=== PATIENT | female | born 1945 | race Caucasian/White ===

== ENCOUNTER 2016-12-17 16:53 | Inpatient (IN) | payer OTHER ==
--- NOTE | ~2016-12-17 | CO ---
Unit #: [id number] #: [id number] Patient: QUETA GIL [id number] [address] [address] [id number] I MR#: [id number] NAME: QUETA GIL ROOM: 555 Age: 71 Sex: F Admission Date: 12/17/2016 : 1945 Attending Physician: Tk High M.D. Primary Care Physician: Tone Shelton M.D. Consultation Date: 12/18/2016 CONSULTATION REPORT CHIEF COMPLAINT 1. Right ankle pain. 2. Left foot pain. HISTORY OF PRESENT ILLNESS The patient is a 71-year-old female, who presented to the emergency department after a ground level fall at home while ambulating to the restroom at approximately 4 o'clock yesterday morning. She was actually using a bedside commode. She has very limited mobility. She felt weak and lightheaded and fell. She used her medical alert button and was brought her to the emergency department. In the emergency department, she was noted to be hypotensive and slightly tachycardic. She was noted to have pyuria and was diagnosed with pyelonephritis with early sepsis. In regard to her musculoskeletal condition, x-rays were obtained and demonstrated a nondisplaced fracture of the medial malleolus and nondisplaced fractures of the base of the second, third, and fourth proximal phalanges. Orthopedic consultation has been requested regarding further treatment of her fractures. She lives with family member and gently primarily mobile in a wheelchair. She has limited use of a walker for what sounds to be essentially transfers only. She complains of weakness in both legs and has difficulty transferring. She is really unable to ambulate more than several feet. PAST MEDICAL HISTORY 1. Recent admission for sepsis and bacteremia secondary to infected port. 2. Myelodysplastic syndrome with chronic anemia. 3. Coronary artery disease, status post CABG. 4. Seizure disorder. 5. Gastroesophageal reflux. 6. Depression. 7. Hypothyroidism. 8. Lupus. 9. Obstructive sleep apnea. PAST SURGICAL HISTORY 1. Status post CABG. 2. Cholecystectomy. 3. Hysterectomy. 4. . 5. Abdominoplasty. 6. Port removal. 7. Unspecified left knee surgery. Unit #: [id number] #: [id number] Patient: QUETA GIL HOME MEDICATIONS Home medications are reviewed include Fosamax, Lotrisone cream, vitamin B12, Aggrenox, Depakote, vitamin D, iron sulfate, Lasix, Neurontin, hydrocortisone cream, Plaquenil, Nizoral Shampoo, Keppra, Synthroid, Lidoderm patch, nitroglycerin, Zofran p.r.n., Protonix, potassium, Zoloft. ALLERGIES IV dye, latex, iodine, sulfa, codeine. FAMILY HISTORY Coronary artery disease. SOCIAL HISTORY The patient lives with her sister. She has no alcohol or tobacco use. She is nearly a non-ambulator as noted above. REVIEW OF SYSTEMS 10 systems are reviewed and positive for urinary frequency, dysuria, chills, dizziness, and musculoskeletal complaints as noted in the HPI. PHYSICAL EXAMINATION GENERAL APPEARANCE: Age-appropriate appearing 71-year-old female, in no acute distress. PSYCHIATRIC: Awake, alert, and oriented to person, place, time, and situation with normal range of mood and affect. CARDIAC: Regular rate and rhythm. PULMONARY: No increased work of breathing, symmetric chest rise. ABDOMEN: Nontender and nondistended. No masses. NEUROLOGIC: Grossly intact. Motor and sensory function throughout. No focal deficits. MUSCULOSKELETAL: She is in a splint to the right lower extremity. This is a somewhat impeding the position of the forefoot and in slight plantar flexion. Further range of motion is deferred. The splint is to be later removed and replaced. EXTREMITIES: Examination of her left foot reveals tenderness over the second, third, and fourth digits. VASCULAR: Her feet are warm and well perfused. LYMPHATICS: No lymphedema or lymphadenopathy. SKIN: There is no overlying erythema or induration. No evidence of any cellulitis. DIAGNOSTIC STUDIES IMAGING STUDIES: 1. Plain film radiographs of the left foot demonstrate what appears to be a nondisplaced fracture base of the proximal phalanx of digits 2, 3, and 4 on the oblique film. On the AP film, there is no visualized fracture. 2. Plain film radiographs of the right ankle demonstrated a nondisplaced medial malleolus fracture. There is diffuse disuse osteopenia and calcification of the distal vasculature. 3. Plain film radiographs of the right shoulder demonstrate a chronic deformity from prior right proximal humerus fracture with collapse of the humeral head. IMPRESSION This is a 71-year-old female, who is a minimal ambulator, admitted with essentially early urosepsis and a nondisplaced fracture of the right medial malleolus and nondisplaced fractures of the base of the proximal Unit #: [id number] #: [id number] Patient: QUETA GIL phalanx of the digit 2, 3, and 4 in the left foot. PLAN Her fractures require no surgical intervention. She is to be given a postoperative shoe on the left foot and may be weightbearing as tolerated for transfers. In regard to her right ankle fracture, her splint is removed and she was placed into a well-padded posterior splint for closed treatment of a right medial malleolus fracture. She will be nonweightbearing on the right lower extremity. I would recommend subacute rehab or nursing placement at discharge. She will follow up in our office in 2 weeks' time for repeat x-rays. Dictated by... Melissa Trujillo/aaron TD: 12/19/2016 00:24 JOB #: [id number] CONSULTATION REPORT X Jd Suarez MD CONSULTATION REPORT
--- NOTE | ~2016-12-17 | CO ---
Unit #: [id number] #: [id number] Patient: QUETA GIL [id number] [id number] [facility]. [place], [place] [address] [id number] I MR#: [id number] NAME: QUETA GIL ROOM: 555 Age: 71 Sex: F Admission Date: 12/17/2016 : 1945 Attending Physician: Tk High M.D. Primary Care Physician: Tone Shelton M.D. CONSULTATION REPORT REASON FOR CONSULTATION Elevated troponin. HISTORY OF PRESENT ILLNESS This is a 71-year-old white female who presented to the emergency room after a fall at home. She states she was getting up in the middle of the night where she felt lightheaded and shaky. She was hanging onto the hospital rail but eventually fell injuring her right ankle and foot. She was found to have a nondisplaced fracture of the right medial malleolus and nondisplaced fractures of the base of the proximal phalanx of the second, third and fourth digits on the left foot. Today, the patient had an episode of left anterior chest pressure with sharp pain that was nonradiating to the neck, arm or jaw. She had associated nausea and diaphoresis. She was treated with three sublingual nitroglycerin that resolved her pain. Upon further questioning, the patient states she has been having episodes of which she thought was indigestion where she has been taking antacids. Her chest indigestion has been awakening her from sleep. She has known coronary artery disease where she had single vessel coronary artery bypass graft with a failed PCI in 1989. She was following Dr. Costa at one time. However, she has failed to follow up. Denies a history of hypertension, hyperlipidemia, diabetes or nicotine abuse. She has a very strong family history of premature coronary artery disease. No cardiac testing after her bypass surgery in 1989. Her troponin on admission was negative. Troponin today was elevated at 0.83. Electrocardiogram on admission had no acute ischemic changes but, however, repeat electrocardiogram today shows inferior wall ST elevation with reciprocal ST depression to the anterolateral leads. She is currently chest pain free. PAST MEDICAL HISTORY 1. Single vessel coronary artery bypass graft as an emergent procedure after failed PCI in 1989. 2. 2D echocardiogram 03/05/2013 shows an ejection fraction equal to greater than 55% with mild aortic regurgitation and mild aortic stenosis. 3. GERD. 4. History of gastric ulcers. 5. Seizure disorder. 6. Hypothyroidism. 7. Depression. 8. Recurrent falls. 9. Obstructive sleep apnea. 10. SLE. 11. Chronic anemia secondary to myelodysplastic syndrome. Unit #: [id number] #: [id number] Patient: QUETA GIL 12. History of diabetes (1) . 13. Lifelong nonsmoker. PAST SURGICAL HISTORY 1. Hysterectomy. 2. Cholecystectomy. 3. Coronary artery bypass graft. 4. section. 5. Abdominoplasty. 6. Left knee surgery. SOCIAL HISTORY The patient lives with her sister. She has never smoked. Denies illicit drug and alcohol use. Lifestyle is sedentary. FAMILY HISTORY Father from myocardial infarction at age 70. Mother from myocardial infarction at age 60. Has a sister who has tachycardia. Another sibling with heart disease. Her son had coronary artery bypass graft at age 34. ALLERGIES IV contrast, sulfa, latex and codeine. HOME MEDICATIONS 1. Fosamax 70 mg weekly. 2. Lotrisone cream 45 g topically b.i.d. 3. Aggrenox, one cap b.i.d. 4. Depakote 500 mg b.i.d. 5. Vitamin D 50,000 units q.7 days. 6. Ferrous sulfate 325 mg daily. 7. Furosemide 80 mg daily p.r.n. 8. Gabapentin 600 mg t.i.d. 9. Hydrocortisone cream topically b.i.d. 10. Plaquenil 200 mg daily. 11. Ketoconazole 120 mL topically b.i.d. 12. Keppra 1000 mg b.i.d. 13. Levothyroxine 50 mcg daily. 14. Nitrostat 0.4 mg sublingual p.r.n. 15. Vitamine B12, one tablet daily. 16. Lidoderm topically daily p.r.n. 17. Zofran 4 mg q.8 hour p.r.n. 18. Protonix 40 mg daily. 19. Potassium chloride 10 mEq daily. 20. Zoloft 50 mg daily. REVIEW OF SYSTEMS CONSTITUTIONAL: Negative for current fever or chills. Has no recent weight gain or weight loss. HEENT: No headache, hearing or visual changes. Reported dizziness. CARDIOVASCULAR: Has chest discomfort described in HPI. Positive for palpitations. No paroxysmal nocturnal dyspnea or orthopnea. No syncope or near syncope. RESPIRATORY: Negative for dyspnea, cough or hemoptysis. GASTROINTESTINAL: Reported nausea with chest pain. No constipation or melena. EXTREMITIES: Positive for lower extremity pain bilaterally. No edema. Unit #: [id number] #: [id number] Patient: QUETA GIL PHYSICAL EXAMINATION VITAL SIGNS: Blood pressure 109/51, heart rate 84, temperature 98.3. BMI 32. GENERAL: This is an obese 71-year-old, elderly white female who is in no acute distress. NEUROLOGICAL: She is awake, alert, oriented without focal weaknesses. NECK: Trachea midline. No thyromegaly or lymphadenopathy. No jugular venous distention. HEART: S1, S2 heart sounds are normal. No murmurs, rubs or clicks. Regular rate and rhythm. LUNGS: Clear to auscultation. ABDOMEN: Soft, nontender with bowel sounds present. EXTREMITIES: Right lower extremity in a cast. Left lower extremity without edema. Pedal pulses palpable. DIAGNOSTIC STUDIES LABORATORY: Glucose 77, BUN less than 5, creatinine 0.4, sodium 133, potassium 3.5. CK total 89, MB 4.5, MB index 5.1, troponin 0.83. Cholesterol 102, triglycerides 71, LDL 47, HDL 41, white count 3.9, hemoglobin 7.7, hematocrit is 22.9, platelet count 106. CARDIOVASCULAR: Presenting electrocardiogram - normal sinus rhythm with a rate of 90 beats per minute. There is poor R wave progression V1 to V6 with left axis deviation. Repeat electrocardiogram - sinus tachycardia with rate of 118 beats per minute with ST elevation in the inferior leads, III and AVF. There is ST depression in the anterolateral leads consistent with inferior lateral wall ST elevation myocardial infarction. IMPRESSION 1. Nondisplaced fracture of the right medial malleolus and proximal phalanx of the second, third and fourth digits on the left foot after fall. 2. Acute inferior lateral ST elevation myocardial infarction. 3. History of coronary artery bypass graft after failed PCI in 1989. 4. Severe anemia. 5. Hypothyroidism. 6. History of seizure disorder. 7. Obstructive sleep apnea. 8. Lifelong nonsmoker. PLAN 1. Because of ST elevation myocardial infarction and elevated troponin with history of coronary artery bypass graft, the patient needs urgent cardiac catheterization. This has been explained to the sister and patient at bedside. Also has been explained to Angelita, her daughter, over the phone. 2. Premedicate for IV contrast allergy. 3. Start the patient on anticoagulation with heparin and aspirin. 4. Stat portable chest x-ray will be done. 5. Monitor hemoglobin. May need blood transfusion. 6. Further recommendations pending results of the cardiac catheterization. Unit #: [id number] #: [id number] Patient: QUETA GIL Thank you for allowing us to assist with this patient's care. Dictated by... Jolene ParsonPDaquanRDaquanNDaquan for Melissa Hernández/jake TD: 12/24/2016 07:12 JOB #: [id number] CONSULTATION REPORT Page 1 of 1 X Jerry Puckett APRN X CONSULTATION REPORT
--- NOTE | ~2016-12-17 | EKG ---
PATIENT: QUETA GIL UNIT #: [id number] Ventricular Rate: 90 BPM Atrial Rate: 90 BPM P-R Interval: 188 ms QRS Duration: 94 ms Q-T Interval: 394 ms QTC Calculation(Bezet): 481 ms P [place]: 19 degrees Calculated R [place]: -19 degrees Calculated T [place]: 152 degrees Diagnosis Line: Normal sinus rhythm Diagnosis Line: Left ventricular hypertrophy with repolarization Diagnosis Line: abnormality Diagnosis Line: Possible Lateral infarct , age undetermined Diagnosis Line: Abnormal ECG Diagnosis Line: When compared with ECG of 11-JUN-2016 15:24, Diagnosis Line: T wave inversion now evident in Lateral leads Diagnosis Line: Confirmed by UNA FRANCE MD ([id number]) on Diagnosis Line: 12/18/2016 11:26:05 AM INTERPRETING MD: ROMÁN CRONIN
--- NOTE | ~2016-12-17 | CR21 ---
[facility] A Service of [facility] RADIOLOGY TEXT RESULTS PATIENT: QUETA GIL LOCATION: [facility] 555-01 : 45 UNIT #: [id number] AGE: [address]: Tk High MD SEX: F ORDER DR: [id number] [facility] [address] [facility]. [place], [place] [address] [id number] I MR#: [id number] Acc #: [id number] NAME: QUETA GIL : 1945 SEX: F STUDY DATE/TIME: 12/17/2016 17:09 UNIT: [facility] ROOM: [facility] STUDY DESCRIPTION: CR Ankle Min 3 Views Rt Attending Physician: Tk High M.D. Ordering Physician: Mat Dias M.D. Primary Care Physician: Tone Shelton M.D. MEDICAL IMAGING REPORT This report is preliminary unless electronic signature is present EXAM Right ankle, 12/17/2016. HISTORY 71-year-old female with right ankle pain status post fall today. COMPARISON Right foot, 11/06/2015. FINDINGS 3 views of the right ankle demonstrate severe bony demineralization. There is a suspected nondisplaced fracture of the medial malleolus. Small ankle effusion. Ankle mortise appears symmetric. Talar dome intact. No other grossly displaced fractures are identified. Soft tissue swelling noted around the ankle. Extensive vascular calcification. Old healed distal fibular fracture. IMPRESSION 1. Severe osteopenia. 2. Suspected nondisplaced fracture involving the medial malleolus. 3. Old healed fracture of the distal fibula. 4. Small ankle description small tibiotalar effusion. 5. Extensive vascular calcification. Dictated by... Jake Schrader M.D. THIS IS AN ELECTRONICALLY VERIFIED REPORT Jake Schrader M.D. at 12/19/2016 3:39 PM JEAN-PAUL/geoffrey [facility] A Service of [facility] RADIOLOGY TEXT RESULTS PATIENT: QUETA GIL LOCATION: [facility] 555-01 : [birth year] UNIT #: [id number] AGE: [address]: Tk High MD SEX: F ORDER DR: TD: 12/18/2016 09:24 JOB #: [id number] MEDICAL IMAGING REPORT COPY
--- NOTE | ~2016-12-17 | EKG ---
PATIENT: QUETA GIL UNIT #: [id number] Ventricular Rate: 69 BPM Atrial Rate: 69 BPM P-R Interval: 180 ms QRS Duration: 98 ms Q-T Interval: 426 ms QTC Calculation(Bezet): 456 ms P [place]: 31 degrees Calculated R [place]: -31 degrees Calculated T [place]: -150 degrees Diagnosis Line: Normal sinus rhythm Diagnosis Line: Left axis deviation Diagnosis Line: ST and T wave abnormality, consider anterolateral Diagnosis Line: ischemia Diagnosis Line: Abnormal ECG Diagnosis Line: When compared with ECG of 21-DEC-2016 07:01, Diagnosis Line: QT has shortened Diagnosis Line: Confirmed by SHALOM MARTINEZ MD ([id number]) on Diagnosis Line: 12/22/2016 8:03:29 PM INTERPRETING MD: ROYAL
--- NOTE | ~2016-12-17 | HP ---
Unit #: [id number] #: [id number] Patient: QUETA GIL [id number] [address] [place], [place] [address] [id number] I MR#: [id number] NAME: QUETA GIL ROOM: 36944 Age: 71 Sex: F Admission Date: 12/17/2016 : 1945 Attending Physician: Hallie Myers M.D. Primary Care Physician: Tone Shelton M.D. HISTORY AND PHYSICAL CHIEF COMPLAINT UTI with sepsis, possible right medial malleolus fracture. HISTORY This 71-year-old female with CAD and normal LV function, seizure disorder, SLE and MDS, is admitted for UTI and sepsis. The patient states that she was well until one week prior to admission when she developed dysuria, and worsening urinary frequency along with chills and poor p.o. intake. Yesterday felt lightheaded. At four o'clock this morning when attempting to use the bedside commode she felt very weak and lightheaded. She fell. She was later able to use her medical alert button, was brought to this emergency department this afternoon with a blood pressure of 78/53, heart rate 92. In the course of her evaluation she was found to have significant pyuria. She complained of right ankle/right foot pain along with left great toe pain. X-rays demonstrate a possible nondisplaced right medial malleolus fracture and possible fractures of the phalanges on the right. In the ER she was given 10 mg of Lortab, bolused with a liter of saline with improvement of her blood pressure. She was then given 2 g of Rocephin and 4 mg of morphine. The patient does make mention of an increasing bilateral flank pain as well. PAST MEDICAL HISTORY 1. Admission to 11/2015 for Staphylococcus coagulase negative sepsis/bacteremia due to infected port which was then removed. Also had a UTI at that time. 2. History of C. difficile colitis. 3. Myelodysplastic syndrome with chronic anemia. 4. CAD status post CABG in the early with normal ejection fraction. 5. Seizure disorder. 6. GERD with history of gastric ulcers. 7. Questionable previous CVA. 8. Depression. 9. Hypothyroidism. 10. SLE. 11. Previous history of obstructive sleep apnea. 12. Cervical spine disease. 13. Recurrent falls. 14. Status post CABG. 15. Cholecystectomy. 16. Hysterectomy. 17. . Unit #: [id number] #: [id number] Patient: QUETA GIL 18. Henri holt. 19. Previous port with removal. 20. Previous left knee surgery. ALLERGIES IV dye, latex, iodine sulfa, codeine. HOME MEDICATIONS 1. Fosamax 70 mg weekly. 2. Lotrisone cream b.i.d. 3. Vitamin B12 daily. 4. Aggrenox 25/200 b.i.d. 5. Depakote 500 mg b.i.d. 6. Vitamin D 50,000 units weekly. 7. Iron sulfate 325 mg daily. 8. Lasix 40 mg two tablets q.a.m. 9. Neurontin 600 mg t.i.d. 10. Hydrocortisone cream. 11. Plaquenil 200 mg daily. 12. Nizoral 2% shampoo twice a week. 13. Keppra 1000 mg b.i.d. 14. Synthroid 0.05 mg daily. 15. Lidoderm patch p.r.n. 16. Nitroglycerin p.r.n. 17. P.r.n. Zofran. 18. Protonix 40 mg daily. 19. Potassium 10 mEq daily. 20. Zoloft 50 mg daily. FAMILY HISTORY CAD. SOCIAL HISTORY The patient is living with her sister, is a lifelong nonsmoker, does not drink alcohol. REVIEW OF SYSTEMS Review of systems is notable for dysuria, frequency, chills, lightheadedness, fall, right foot and ankle pain, seizures, SLE, CAD, GERD, peptic ulcer disease, depression, hypothyroidism, MDS, C-spine disease, recurrent falls, abovementioned surgeries. All other systems were reviewed and are negative. PHYSICAL EXAMINATION GENERAL: Pleasant, pale 71-year-old female currently in no acute distress. VITAL SIGNS: Temperature 98.4. Pulse 92. Respirations are 14. Blood pressure is 78/53, now improved to 103/50. Oxygen saturation is 93% on room air. HEENT: Eyes PERRLA, extraocular muscles are intact. Pharynx is benign. NECK: Supple, without adenopathy or thyromegaly. CHEST: Clear. BACK: No CVA tenderness at this time but the patient did receive morphine earlier. CARDIAC: Normal S1 and S2, very soft systolic murmur. ABDOMEN: Bowel sounds are present. No hepatosplenomegaly, tenderness or masses. EXTREMITIES: The patient has a right lower extremity cast in place by the ER. She has a tenderness with palpation of the left great toe. No pedal Unit #: [id number] #: [id number] Patient: QUETA GIL. NEUROLOGIC EXAM: Patient is awake, alert, oriented. Cranial nerves are intact. Equal strength throughout. DIAGNOSTIC STUDIES LABORATORY: On admission labs hematocrit is 30.7, has been low in the past as well, normal white count, platelet count is 128. SMA-12: GFR is 58.1, calcium 8.2, protein 5.9, albumin is 3.2. Lactic acid is normal. Cardiac markers are negative. Urinalysis positive for leukocyte esterase, nitrites, protein, with 50 to 100 red cells, innumerable white cells, 4+ bacteria. IMAGING: X-rays of the LS spine chronic changes, no fracture. Spondylolisthesis noted. X-rays of the right shoulder show no new fracture. There is a chronic right humeral head fracture deformity with advanced degenerative disease. X-ray of the right foot and ankle suspected nondisplaced fracture of the medial malleolus. Questionable nondisplaced fractures of the phalanx second, third and fourth although this could be artifactual. CARDIOVASCULAR: EKG: Normal sinus rhythm, rate 90, poor R-wave progression, left axis deviation. ASSESSMENT 1. Urinary tract infection with sepsis and hypotension, responding to intravenous fluids. 2. History of Staphylococcus coagulase negative bacteremia last year. Port was removed. 3. Possible right medial nondisplaced ankle fracture, rule out toe fractures. 4. Myelodysplastic syndrome with chronic anemia. 5. Rheumatoid arthritis. 6. Seizures, on Keppra and Depakote. 7. Coronary artery disease, status post coronary artery bypass graft with normal left ventricular function. 8. History of peptic ulcer disease. 9. Hypothyroidism. PLANS 1. IV fluids and hold Lasix. 2. Rocephin and vancomycin pending cultures. Will ask for a renal ultrasound. Given the patient's blood pressure was low will give one dose of tobramycin pending cultures. 3. DVT prophylaxis. 4. Gentle pain control. 5. Florastor given history of C. difficile colitis. 6. Orthopedic surgeon to see. Dictated by Hallie Myers M.D. AML/cf Unit #: [id number] #: [id number] Patient: QUETA GIL TD: 12/17/2016 22:24 JOB #: [id number] HISTORY AND PHYSICAL X Hallie Myers MD X HISTORY AND PHYSICAL
--- NOTE | ~2016-12-17 | A ---
[facility] Nutrition Therapy DATE: 12/18/16 Patient: QUETA GIL Physician: FANY Address: [address] [facility] Room/Bed: 555-01 [facility], Zip: [place] [address] Admit Date: 12/17/16 Date of : [birth year] Height: 5 4 Weight: 187 84.82 NUTRITIONAL ASSESSMENT: REASON: 6 nutritional risk pts RE: 35# wt loss, eating poorly 71 yo female admitted for sepsis PMH: UTI, CAD, seizure d/o, depression, hypothroidism, anemia, colitis, FERNANDO, cholecystectomy, DM, cervical spine disease, SLE Anthropometrics: HT: 5'4", WT: 85 kg (186#), BMI: 32.2 Labs: Ca++: 7.7, Alb: 3.2, Lip: 16 Meds: Vitamin D, NaCl, Protonix, Ferrous Gluconate, Zofran I/O & Bowel function: 2940/4, LBM 3/13 Skin Integrity: Scar (BLE, L hip, chest), surgical site (R chest) Edema: Generalized Estimated Nutrition Needs: Increased d/t wt loss Assessment: Chart reviewed, events noted. Pt reported loss of appetite after fall yesterday morning. Pt reported ~50# wt loss over past year, stating UBW ~230#. Pt reports not following any specific diet at home. Of note, pt experiences indigestion after consuming milk, but no intolerance with yogurt. RD encouraged Ensure Clear once a day, pt agreed. Pt reported no diet questions at this time. RD to follow. Dx: Unintended weight loss RT eating poorly, appetite loss, current clinical condition AEB ~50# wt loss, pt report above. Intervention: 1. Apple Ensure Clear once a day Monitoring, Evaluation and Goals: 1. PO intake; provide and consume ~80-100% of estimated energy needs 2. Labs; WNL 3. Skin; promote healing 4. Weight; prevent further unintentional wt loss Recommendations: 1. Order Apple Ensure Clear once daily with lunch. [facility] Nutrition Therapy DATE: 12/18/16 Patient: QUETA GIL Physician: FANY Address: [address] [facility] Room/Bed: 555-01 [facility], Zip: [place] [address] Admit Date: 12/17/16 Date of : [birth year] Height: 5 4 Weight: 187 84.82 2. Recommend to add lactose-free to current diet order 2' pt report above. 3. Encourage adequate calorie, protein, and fluid intake. Pt is at a mild-moderate nutrtional risk. RD to f/u per protocol. Respectfully, MARIANELA HOLT, Supervisor [employer] Robert Murillo MS, RD, LD Food and Nutritional Services [facility] cc: client file
--- NOTE | ~2016-12-17 | EKG ---
PATIENT: QUETA GIL UNIT #: [id number] Ventricular Rate: 93 BPM Atrial Rate: 93 BPM P-R Interval: 184 ms QRS Duration: 102 ms Q-T Interval: 390 ms QTC Calculation(Bezet): 484 ms P [place]: 41 degrees Calculated R [place]: -25 degrees Calculated T [place]: -146 degrees Diagnosis Line: Normal sinus rhythm Diagnosis Line: Anterolateral infarct (cited on or before Diagnosis Line: 17-DEC-2016) Diagnosis Line: ST and T wave abnormality, consider inferior Diagnosis Line: ischemia Diagnosis Line: Abnormal ECG Diagnosis Line: When compared with ECG of 20-DEC-2016 10:54, Diagnosis Line: (unconfirmed) Diagnosis Line: Sinus rhythm has replaced Junctional rhythm Diagnosis Line: Questionable change in QRS duration Diagnosis Line: Questionable change in initial forces of Diagnosis Line: Anteroseptal leads Diagnosis Line: Confirmed by EFREN SRIVASTAVA MD ([id number]) on 12/21/2016 Diagnosis Line: 7:55:53 AM INTERPRETING MD: ATIF CRONIN
--- NOTE | ~2016-12-17 | CR181 ---
[facility] A Service of [facility] RADIOLOGY TEXT RESULTS PATIENT: QUETA GIL LOCATION: B 555-01 : 45 UNIT #: [id number] AGE: [address]: Tk High MD SEX: F ORDER DR: [id number] [facility] [address] [place], [place] [address] [id number] I MR#: [id number] Acc #: [id number] NAME: QUETA GIL : 1945 SEX: F STUDY DATE/TIME: 12/17/2016 17:14 UNIT: [facility] ROOM: [facility] STUDY DESCRIPTION: CR Lumbar Spine 2 or 3 Views Attending Physician: Tk High M.D. Ordering Physician: Mat Dias M.D. Primary Care Physician: Tone Shelton M.D. MEDICAL IMAGING REPORT This report is preliminary unless electronic signature is present EXAM Lumbar spine 3 views HISTORY 71-year-old female fell, complains of pain, weakness, cannot move FINDINGS AP lateral and cone lateral views of the lumbar spine demonstrates a grade 1 to grade 2 spondylolisthesis L4 on L5 which was present on the patient's study from October 2015 but may have progressed. There is extensive multilevel facet arthropathy. No definite fracture is identified. Diffuse aortic atherosclerotic changes. 2 radiodensities are seen at the thoracolumbar junction most likely represent intrathecal Pantopaque. Dystrophic calcifications are seen over the right abdomen probably related to areas of fat necrosis. Mild levo curvature lumbar spine. 2 radiodensities demonstrate in the right upper quadrant could represent gallstones or possibly represent calcifications within diverticula. IMPRESSION 1. Grade 1 to grade 2 spondylolisthesis L4 on L5 which was present on the patient's CT scan October 2015 but may be minimally progressed. This is most likely on the basis of advanced degenerative facet arthropathy. 2. No acute fracture identified. Extensive facet arthropathy noted lower lumbar spine. Dictated by... Citlalli Snow M.D. THIS IS AN ELECTRONICALLY VERIFIED REPORT Citlalli Snow M.D. at 12/18/2016 2:05 PM SANDOVAL/bret [facility]. [facility] A Service of [facility] RADIOLOGY TEXT RESULTS PATIENT: QUETA GIL LOCATION: C5B 555-01 : 45 UNIT #: [id number] AGE: [address]: Tk High MD SEX: F ORDER DR: TD: 12/18/2016 09:24 JOB #: [id number] MEDICAL IMAGING REPORT COPY
--- NOTE | ~2016-12-17 | CR63 ---
[facility] A Service of [facility] RADIOLOGY TEXT RESULTS PATIENT: QUETA GIL LOCATION: [facility] 555 : 45 UNIT #: [id number] AGE: [address]: Tk High MD SEX: F ORDER DR: [id number] [facility] [address] [facility]. [place], [place] [address] [id number] I MR#: [id number] Acc #: [id number] NAME: QUETA GIL : 1945 SEX: F STUDY DATE/TIME: 12/26/2016 14:41 UNIT: [facility] ROOM: [facility] STUDY DESCRIPTION: CR Chest 2 View Attending Physician: Tk High M.D. Ordering Physician: Tk High M.D. Primary Care Physician: Tone Shelton M.D. MEDICAL IMAGING REPORT This report is preliminary unless electronic signature is present EXAM Chest PA and lateral 12/26/2016. COMPARISON STUDIES Comparison study is dated 12/20/2016 HISTORY Chest pain, sepsis beginning today. FINDINGS PA and lateral views obtained. The heart size is stable. Vascular pattern normal. Lungs are clear. There is a densely calcified breast prosthesis in place. The patient has had prior bypass surgery. No acute infiltrates are identified. Note is made of a large hiatal hernia. CONCLUSION 1. Status post median sternotomy and bypass. 2. Large hiatal hernia. 3. Calcified right breast prosthesis. 4. No acute process in the chest. Dictated by... Mike Campbell M.D. THIS IS AN ELECTRONICALLY VERIFIED REPORT Mike Campbell M.D. at 12/30/2016 2:45 PM SAMMIE/bill TD: 12/26/2016 15:45 JOB #: [id number] [facility] A Service of [facility] RADIOLOGY TEXT RESULTS PATIENT: QUETA GIL LOCATION: [facility] 555 : 45 UNIT #: [id number] AGE: [address]: Tk High MD SEX: F ORDER DR: MEDICAL IMAGING REPORT Page 1 of 1 COPY
--- NOTE | ~2016-12-17 | CR72 ---
[facility] A Service of [facility] RADIOLOGY TEXT RESULTS PATIENT: QUETA GIL LOCATION: [facility] 555 : 45 UNIT #: [id number] AGE: [address]: Tk High MD SEX: F ORDER DR: [id number] [facility] [address]. [place], [place] [address] [id number] I MR#: [id number] Acc #: [id number] NAME: QUETA GIL : 1945 SEX: F STUDY DATE/TIME: 12/20/2016 13:08 UNIT: [facility] ROOM: [facility] STUDY DESCRIPTION: CR Chest Single View Portable Attending Physician: Tk High M.D. Ordering Physician: Tyson Tellez M.D. Primary Care Physician: Tone Shelton M.D. MEDICAL IMAGING REPORT This report is preliminary unless electronic signature is present EXAM Frontal chest. DATE OF EXAM 12/20/2016 INDICATIONS 71-year-old female with shortness of air, heart attack, symptoms began 12/17/2016. History of open-heart surgery. Cardiac catheterization today. REPORT Frontal chest, compared with 06/11/2016. FINDINGS Right-sided PICC line tip at the level of the ios-oy-zhardf SVC in this patient status post median sternotomy and potential heart valve replacement versus mitral valve calcifications simulating an artificial valve. Vascularity within normal limits. Lung volumes are low. There is no dense consolidation pneumothorax or new significant effusion. Post-traumatic changes of the right humerus. Status post augmentation mammoplasty bilaterally with calcified implant on the right. IMPRESSION 1. New right-sided PICC line in satisfactory position. No pneumothorax. 2. Postop changes as described with low lung volumes, but no effusion or dense consolidation. 3. Chronic post-traumatic deformity of the humeral head and proximal shaft right humerus. Dictated by... Rohith Cohen M.D. [facility] A Service of [facility] RADIOLOGY TEXT RESULTS PATIENT: QUETA GIL LOCATION: [facility] [address] : 45 UNIT #: [id number] AGE: [address]: Tk High MD SEX: F ORDER DR: THIS IS AN ELECTRONICALLY VERIFIED REPORT Rohith Cohen M.D. at 12/20/2016 5:25 PM Andre TD: 12/20/2016 17:22 JOB #: [id number] MEDICAL IMAGING REPORT COPY
--- NOTE | ~2016-12-17 | US140 ---
[facility] A Service of [facility] RADIOLOGY TEXT RESULTS PATIENT: QUETA GIL LOCATION: C5B 555-01 : 45 UNIT #: [id number] AGE: [address]: Tk High MD SEX: F ORDER DR: [id number] [facility] [address] [place], [place] [address] [id number] I MR#: [id number] Acc #: [id number] NAME: QUETA GIL : 1945 SEX: F STUDY DATE/TIME: 12/23/2016 14:18 UNIT: [facility] ROOM: [facility] STUDY DESCRIPTION: US UE Veins Unilat or Ltd Stdy Attending Physician: Tk High M.D. Ordering Physician: Tk High M.D. Primary Care Physician: Tone Shelton M.D. MEDICAL IMAGING REPORT This report is preliminary unless electronic signature is present EXAM Right upper extremity venous Doppler, 12/23 INDICATIONS History of PICC line in the right upper extremity. Right upper extremity swelling for the last 4 days. FINDINGS Black-scale, color flow, and spectral Doppler waveform analysis is performed of the right upper extremity venous system. All of the deep venous structures demonstrate normal color flow and compressibility, where applicable. There is no DVT. There is some nonocclusive superficial thrombus in the mid basilic vein. The cephalic vein is patent. A PICC is present in the basilic vein. IMPRESSION 1. No DVT in the right upper extremity. 2. Short-segment nonocclusive superficial thrombus in the mid basilic vein. Dictated by... Lv Ron Jr., M.D. THIS IS AN ELECTRONICALLY VERIFIED REPORT Lv Ron Jr., M.D. at 12/23/2016 10:31 PM TARA/isamar TD: 12/23/2016 19:42 JOB #: [id number] MEDICAL IMAGING REPORT COPY
--- NOTE | ~2016-12-17 | CR230 ---
[facility] A Service of [facility] RADIOLOGY TEXT RESULTS PATIENT: QUETA GIL LOCATION: [facility] 555-01 : 45 UNIT #: [id number] AGE: [address]: Tk High MD SEX: F ORDER DR: [id number] [place] [id number] [facility] [facility] [place], [place] [address] [id number] I MR#: [id number] Acc #: [id number] NAME: QUETA GIL : 1945 SEX: F STUDY DATE/TIME: 12/17/2016 17:11 UNIT: [facility] ROOM: [facility] STUDY DESCRIPTION: CR Shoulder Min 2 View Rt Attending Physician: Tk High M.D. Ordering Physician: Mat Dias M.D. Primary Care Physician: Tone Shelton M.D. MEDICAL IMAGING REPORT This report is preliminary unless electronic signature is present EXAM Right shoulder 12/17/2016 HISTORY 71-year-old female with right shoulder pain status post fall today. COMPARISON Right shoulder 03/09/2013. FINDINGS 4 views of the right shoulder demonstrate a chronic-appearing fracture deformity of the humeral head which is not significantly changed from 03/09/2013. No evidence of an acute fracture. No dislocation. Advanced glenohumeral arthrosis is again noted. Mild arthrosis of the acromioclavicular joint. IMPRESSION 1. No evidence of acute fracture or dislocation. 2. Chronic-appearing fracture deformity of the right humeral head with a secondary advanced glenohumeral arthrosis. 3. Mild arthrosis of the acromioclavicular joint. Dictated by... Jake Schrader M.D. THIS IS AN ELECTRONICALLY VERIFIED REPORT Jake Schrader M.D. at 12/19/2016 3:39 PM Ysabel TD: 12/18/2016 09:54 JOB #: [id number] [facility] A Service of [facility] RADIOLOGY TEXT RESULTS PATIENT: QUETA GIL LOCATION: C5 555-01 : 45 UNIT #: [id number] AGE: [address]: Tk High MD SEX: F ORDER DR: MEDICAL IMAGING REPORT COPY
--- NOTE | ~2016-12-17 | DS ---
Unit #: [id number] #: [id number] Patient: QUETA GIL [id number] [address] [place], [place] [address] [id number] I MR#: [id number] NAME: QUETA GIL ROOM: 555 Age: 71 Sex: F Admission Date: 12/17/2016 : 1945 Discharge Date: Attending Physician: Tk High M.D. Primary Care Physician: Tone Shelton M.D. DISCHARGE SUMMARY ADMITTING DIAGNOSES 1. Sepsis with urinary tract infection. 2. Non-ST elevation myocardial infarction, status post cardiac catheterization and recommended for medical management. 3. Right malleolar fracture, conservative management. 4. History of c-diff colitis. 5. History of myelodysplasia with chronic anemia. 6. History of coronary artery disease, status post coronary artery bypass grafting. 7. History of seizure disorder. 8. History of gastroesophageal reflux disease. 9. History of depression. 10. Hypothyroidism. 11. SLE. 12. Obstructive sleep apnea. 13. Cervical spine disease. 14. Recurrent falls. 15. Cholecystectomy. 16. Hysterectomy. 17. . HISTORY OF PRESENT ILLNESS The patient is a 71-year-old lady with multiple medical problems including coronary artery disease with normal left ventricular function, seizure disorder, lupus and MDS. The patient was admitted because of a urinary tract infection and sepsis. She was having increased frequency of urination prior to hospitalization. She was trying to get into the bathroom. She felt lightheaded and dizzy and fell. In the initial hospitalization she was hypotensive. HOSPITAL COURSE The patient was started on sepsis protocol. She was started on broad spectrum antimicrobials. Her urine cultures came back positive for e-coli. Antimicrobials were deescalated. In the hospital course she also had right foot pain. She was seen by Dr. Jd Suarez and Dr. Suarez recommended for nonoperative management and conservative management with nonweightbearing and a splint. In the hospital course she complained of chest pain. Dr. Tellez was consulted. He did a cardiac catheterization. She was noted to have 100% occlusion of the right coronary artery and heavily calcified vessels. Dr. Tellez recommended for medical management. She is doing clinically better. We are working on trying to arrange for rehab, but most likely by tomorrow we may have a rehab bed. She also was noted to have swelling of the lower Unit #: [id number] #: [id number] Patient: QUETA GIL extremities. I am trying to get a STAT ultrasound of the legs. If the ultrasound is positive for DVT will start her on anticoagulation. If they are negative, we will leave her on prophylactic dose of Lovenox. PHYSICAL EXAMINATION VITALS: Temperature 97.5, pulse rate 60, respiratory rate 21, blood pressure 92/63. GENERAL: The patient is alert and oriented times three, lying in the bed in no acute distress. HEENT: Normocephalic, atraumatic. No icterus. Pupils equally round and reactive to light and accommodation. Extraocular muscles intact. NECK: Supple. No jugular venous distension. HEART: S1 and S2. Regular rate and rhythm. CHEST: Bilateral equal entry. Clear to auscultation. ABDOMEN: Soft and nontender. EXTREMITIES: Right foot in splint and mild edema. DISCHARGE MEDICATIONS 1. Lotrisone topical ointment. 2. Tylenol p.r.n. 3. Depakote 500 mg b.i.d. 4. Gabapentin 600 mg p.o. daily. 5. Keppra 1000 mg p.o. b.i.d. 6. Zoloft 25 mg at bedtime. 7. Zofran 4 mg p.o. q.8 h. p.r.n. nausea and vomiting. 8. Ketoconazole 120 ml topically b.i.d. 9. Plaquenil 200 mg p.o. daily. 10. Lidoderm topical for pain p.r.n. 11. Coreg 6.25 mg p.o. b.i.d. 12. Omnicef 300 mg p.o. b.i.d. for 3 more days. 13. Lipitor 40 mg daily. 14. Ferrous gluconate 324 mg daily. 15. Fosamax 70 mg p.o. weekly. 16. Florastor 50 mg p.o. b.i.d. 17. Aspirin 81 mg daily. 18. Ranexa 500 mg p.o. b.i.d. 19. Plavix 75 mg daily. 20. Protonix 40 mg daily. 21. Synthroid 50 mcg p.o. daily. 22. Aggrenox 1 capsule p.o. b.i.d. 23. Imdur 30 mg p.o. daily. 24. Nitroglycerin 0.4 mg sublingual p.r.n. chest pain. 25. Vitamin D 50,000 units p.o. Friday. 26. Cyanocobalamin 1000 mcg p.o. daily. FOLLOWUP 1. The patient is instructed to follow up with her primary care physician. 2. Follow up with cardiology as an outpatient. PROCEDURES PERFORMED Kindly note we did get a two-dimensional echo done during this hospitalization. It showed an ejection fraction of 35%-45%. Mildly dilated RV. Mild to moderate aortic stenosis. Mild to moderate aortic regurgitation. Mitral anular calcification. Mild to moderate mitral regurgitation. Mild tricuspid regurgitation. Mild pericardial effusion. Time spent in her care was 35 minutes. Unit #: [id number] #: [id number] Patient: QUETA GIL Dictated by... Melissa Le TD: 12/26/2016 08:38 JOB #: [id number] DISCHARGE SUMMARY Page 1 of 1 X X DISCHARGE SUMMARY
--- NOTE | ~2016-12-17 | US77 ---
[facility] A Service of [facility] RADIOLOGY TEXT RESULTS PATIENT: QUETA GIL LOCATION: [facility] : 45 UNIT #: [id number] AGE: [address]: Tk High MD SEX: F ORDER DR: [id number] [facility] [address]. [place], [place] [address] [id number] I MR#: [id number] Acc #: [id number] NAME: QUETA GIL : 1945 SEX: F STUDY DATE/TIME: 12/18/2016 7:59 UNIT: [facility] ROOM: [facility] STUDY DESCRIPTION: US Kidney Bilateral Complete Attending Physician: Tk High M.D. Ordering Physician: Hallie Myers M.D. Primary Care Physician: Tone Shelton M.D. MEDICAL IMAGING REPORT This report is preliminary unless electronic signature is present EXAM Renal ultrasound INDICATION Bilateral flank pain for the past few days. PROCEDURE Black-scale and Doppler imaging of the kidneys and bladder. COMPARISON None FINDINGS Right kidney measures 11.3 cm. Bladder wall is thickened up to 8 mm. Left kidney measures 9.9 cm. No hydronephrosis or focal renal lesion. IMPRESSION 1. Negative renal ultrasound. 2. There is circumferential bladder wall thickening. It is nonspecific but could be seen in the setting of cystitis. Dictated by... Jarocho Macias M.D. THIS IS AN ELECTRONICALLY VERIFIED REPORT Jarocho Macias M.D. at 12/19/2016 7:05 AM BRANDON/geoffrey TD: 12/18/2016 13:53 JOB #: [id number] [facility] A Service [facility] RADIOLOGY TEXT RESULTS PATIENT: QUETA GIL LOCATION: [facility] : 45 UNIT #: [id number] AGE: [address]: Tk High MD SEX: F ORDER DR: MEDICAL IMAGING REPORT COPY
--- NOTE | ~2016-12-17 | EKG ---
PATIENT: QUETA GIL UNIT #: [id number] Ventricular Rate: 71 BPM Atrial Rate: 71 BPM P-R Interval: 202 ms QRS Duration: 104 ms Q-T Interval: 474 ms QTC Calculation(Bezet): 515 ms P [place]: 34 degrees Calculated R [place]: -19 degrees Calculated T [place]: -118 degrees Diagnosis Line: Normal sinus rhythm Diagnosis Line: Anterior infarct (cited on or before 17-DEC-2016) Diagnosis Line: ST and T wave abnormality, consider inferolateral Diagnosis Line: ischemia Diagnosis Line: Prolonged QT Diagnosis Line: Abnormal ECG Diagnosis Line: When compared with ECG of 20-DEC-2016 15:33, Diagnosis Line: (unconfirmed) Diagnosis Line: No significant change was found Diagnosis Line: Confirmed by EFREN SRIVASTAVA MD ([id number]) on 12/21/2016 Diagnosis Line: 8:01:40 AM INTERPRETING MD: ATIF CRONIN
--- NOTE | ~2016-12-17 | EKG ---
PATIENT: QUETA GIL UNIT #: [id number] Ventricular Rate: 118 BPM Atrial Rate: 33 BPM QRS Duration: 72 ms Q-T Interval: 362 ms QTC Calculation(Bezet): 507 ms Calculated R [place]: 13 degrees Calculated T [place]: -94 degrees Diagnosis Line: Sinus tachycardia Diagnosis Line: ST and T wave abnormality, consider inferior Diagnosis Line: ischemia Diagnosis Line: ST and T wave abnormality, consider anterolateral Diagnosis Line: ischemia Diagnosis Line: * ACUTE [place] Diagnosis Line: Abnormal ECG Diagnosis Line: When compared with ECG of 17-DEC-2016 17:01, Diagnosis Line: QRS duration has decreased Diagnosis Line: Acute Inferolateral injury pattern is now Present Diagnosis Line: Diagnosis Line: Confirmed by EFREN SRIVASTAVA MD ([id number]) on 12/21/2016 Diagnosis Line: 7:49:03 AM INTERPRETING MD: ATIF CRONIN
--- NOTE | ~2016-12-17 | US84 ---
[id number] [facility]. [facility] [address] [place], [place] [address] [id number] I MR#: [id number] Acc #: [id number] NAME: QUETA GIL : 1945 SEX: F STUDY DATE/TIME: 12/25/2016 18:28 UNIT: C5B ROOM: [facility] STUDY DESCRIPTION: US LE Veins Complete [place] Stdy Attending Physician: Tk High M.D. Ordering Physician: Tk High M.D. Primary Care Physician: Tone Shelton M.D. MEDICAL IMAGING REPORT This report is preliminary unless electronic signature is present EXAM Ultrasound lower extremity Doppler complete bilateral, 12/25/2106 HISTORY Pain in bilateral lower extremities for 8 days. Broke right ankle and left toes 8 days ago due to a fall from having a heart attack. COMMENT Real-time ultrasonography of the bilateral lower extremity deep venous system performed with 2-D reyes-scale compression imaging, color flow Doppler imaging and waveform analysis. Because the patient has a cast on the right lower extremity posterior tibial vein, peroneal vein and anterior tibial vein could not be studied. Otherwise, normal flow and compressibility is seen in the right lower extremity common femoral vein, downstream deep femoral vein, superficial femoral vein and popliteal vein. The greater saphenous vein is unremarkable proximally. It is within normal limits at the level of the knee but not seen below the knee. Evaluation of the left lower extremity shows normal flow and compressibility is throughout the left lower extremity deep venous system and the left side greater saphenous vein is also within normal limits. IMPRESSION No evidence for acute appearing deep venous thrombosis either lower extremity deep venous system. Please be aware that on the right side there is a cast present and therefore the right posterior tibial vein, peroneal vein and anterior tibial vein could not be studied for the possibility of DVT. Dictated by... Merlene West M.D. THIS IS AN ELECTRONICALLY VERIFIED REPORT Merlene West M.D. at 12/26/2016 10:04 AM ANGELITA/janneth TD: 12/26/2016 02:18 JOB #: [id number] MEDICAL IMAGING REPORT Page 1 of 1 COPY
--- NOTE | ~2016-12-17 | FU ---
[facility] Nutrition Therapy DATE: 12/24/16 Patient: QUETA GIL Physician: FANY Address: [address] [facility] Room/Bed: [address] [place] [address], Zip: [place] [address] Admit Date: 12/17/16 Date of : [birth year] Height: 5 4 Weight: 171 77.9 NUTRITION MONITORING/FOLLOW-UP: Reason: Nutrition follow-up Admitting Dx: 71 y/o female admitted with sepsis Anthropometrics: Ht: 64", admission wt: 186 lbs, current wt: 171 lbs, weight ranges since admission: 164-187 lbs, BMI (based on admission wt): 32.2 (Stage I obese) Labs: Reviewed; nothing significant Meds: Synthroid, PPI, Vitamin D, Vitamin B12 GI: LBM 12/23 Skin: Puncture procedure site R groin, scars/bruises noted, no edema Assessment: Chart reviewed, events noted. Patient remains on a healthy heart diet with daily apple Ensure Clear at lunch. Note weight ranges since admission- unclear whether patient's weight has been stable or not due to conflicting weights. Of note, the patient needs to be lactose free but can tolerate yogurt. Patient sleeping at time of RD visit to room and did not wake with verbal cues, RD observed breakfast and lunch tray- 75% of breakfast and < 50% lunch consumed. Did not observe any Ensure Clear on the patient's lunch tray. Previous nutrition goals minimally met, goal related to weight undetermined. Previous nutrition dx remains. See RD recs below. Dx: Unintentional weight loss r/t eating poorly, decreased appetite AEB patient reported 50 lb weight loss. - ACTIVE Intervention: Accurate weight Monitoring, Evaluation and Goals: MINIMALLY MET New goals: 1. PO intake > 50% of meals. 2. Gradual weight loss towards a healthy BMI range while maintaining adequate micro/macronutrient and vitamin/mineral intake. Monitor: Per protocol, criteria to determine if above goals met Recommendations: [facility] Nutrition Therapy DATE: 12/24/16 Patient: QUETA GIL Physician: FANY [facility] [address] [facility] Room/Bed: [address] [place] [address], Zip: [place] [address] Admit Date: 12/17/16 Date of : [birth year] Height: 5 4 Weight: 171 77.9 1. Continue current diet: healthy heart with daily apple Ensure Clear. Patient requires lactose free foods but can tolerate yogurt. 2. Please obtain an accurate weight and update in [employer]. Status: Mild nutrition risk Respectfully, Tosha Bowles RD, LD Food and Nutritional Services [facility] cc: client file
--- NOTE | ~2016-12-17 | EKG ---
PATIENT: QUETA GIL UNIT #: [id number] Ventricular Rate: 70 BPM Atrial Rate: 70 BPM P-R Interval: 172 ms QRS Duration: 98 ms Q-T Interval: 446 ms QTC Calculation(Bezet): 481 ms P [place]: 44 degrees Calculated R [place]: 33 degrees Calculated T [place]: -78 degrees Diagnosis Line: Normal sinus rhythm Diagnosis Line: Poor R wave progression questionable lead position Diagnosis Line: or body habitus Diagnosis Line: ST and T wave abnormality, consider inferolateral Diagnosis Line: ischemia Diagnosis Line: Abnormal ECG Diagnosis Line: When compared with ECG of 22-DEC-2016 07:08, Diagnosis Line: T wave inversion less evident in Lateral leads Diagnosis Line: Confirmed by EFREN SRIVASTAVA MD ([id number]) on 12/24/2016 Diagnosis Line: 4:36:55 AM INTERPRETING MD: ATIF CRONIN
--- NOTE | ~2016-12-17 | XA166 ---
[facility] A Service of [facility] & [facility] RADIOLOGY TEXT RESULTS PATIENT: QUETA GIL LOCATION: C5B 555-01 : 45 UNIT #: [id number] AGE: [address]: Tk High MD SEX: F ORDER DR: [id number] [facility] [address]. [place], [place] [address] [id number] I MR#: [id number] Acc #: [id number] NAME: QUETA GIL : 1945 SEX: F STUDY DATE/TIME: 12/19/2016 14:48 UNIT: C5B ROOM: [facility] STUDY DESCRIPTION: XA PICC Line Placement WO Port Attending Physician: Tk High M.D. Ordering Physician: Miroslava Gilmore M.D. Primary Care Physician: Tone Shelton M.D. MEDICAL IMAGING REPORT This report is preliminary unless electronic signature is present EXAM PICC line insertion, 12/19/2016 INDICATION 71-year-old female who needs IV access for antibiotics. PRE-PROCEDURE The procedure was explained to the patient and/or patient publications sales representative including risks, benefits, potential complications and potential for alternative forms of treatment. Informed consent was obtained, and prior to initiating the procedure a formal timeout procedure was performed. PROCEDURE Using full standard sterile barrier technique, including caps, gowns, gloves, masks, as well as sterile skin preparation and standard sterile draping, the right arm was prepped and draped in the usual fashion, and real-time sterile ultrasound guidance was used to localize an arm vein and to confirm vessel patency. A hard copy ultrasound image was recorded. After local anesthesia with 1% Xylocaine, the basilic vein was punctured using real-time sterile ultrasound guidance, and an 0.018 guidewire was advanced into the superior vena cava, using fluoroscopic guidance. A 5 Slovak 35 cm double-lumen PICC was then measured and deployed with the tip positioned in the superior vena cava. The position of the line was documented with a 1 radiographic image. The line was secured in place with an adhesive dressing and an antibiotic patch was applied. Total fluoro time was 0.2 minutes. IMPRESSION Successful right arm PICC line placement. [facility] A Service of [facility] RADIOLOGY TEXT RESULTS PATIENT: QUETA GIL LOCATION: C5B 555-01 : 45 UNIT #: [id number] AGE: [address]: Tk High MD SEX: F ORDER DR: Dictated by... Gilles Snow M.D. THIS IS AN ELECTRONICALLY VERIFIED REPORT Gilles Snow M.D. at 12/23/2016 8:37 AM RACHNA/janneth TD: 12/20/2016 03:36 JOB #: [id number] MEDICAL IMAGING REPORT COPY
--- NOTE | ~2016-12-17 | CR126 ---
[facility] A Service of [facility] RADIOLOGY TEXT RESULTS PATIENT: QUETA GIL LOCATION: C5B 555-01 : 45 UNIT #: [id number] AGE: [address]: Tk High MD SEX: F ORDER DR: [id number] [facility] [address] [facility]. [place], [place] [address] [id number] I MR#: [id number] Acc #: [id number] NAME: QUETA GIL : 1945 SEX: F STUDY DATE/TIME: 12/17/2016 17:07 UNIT: C5B ROOM: [facility] STUDY DESCRIPTION: CR Foot Complete Min 3 View Lt Attending Physician: Tk High M.D. Ordering Physician: Mat Dias M.D. Primary Care Physician: Tone Shelton M.D. MEDICAL IMAGING REPORT This report is preliminary unless electronic signature is present EXAM Left foot, 12/17/2016. HISTORY 71-year-old female with left foot and ankle pain status post fall today. COMPARISON Left ankle, 08/23/2013. FINDINGS 3 views of the left foot demonstrate severe bony demineralization. There is some questionable irregularity involving the proximal metaphyses of the second, third, and fourth proximal phalanges. This is nonspecific and may be positional, but nondisplaced fractures are not excluded if this corresponds to the area of the patient's pain. No other displaced fractures are identified. Diffuse vascular calcifications. There are some surgical clips noted near the medial malleolus. IMPRESSION 1. Limited examination secondary to severe osteopenia. 2. Questionable irregularity involving the proximal metaphysis of the second, third, and fourth proximal phalanges. This may be artifactual secondary to positioning of the toes, but nondisplaced fractures are not excluded if this corresponds to the area of the patient's pain. 3. Diffuse vascular calcification. Dictated by... Jake Schrader M.D. THIS IS AN ELECTRONICALLY VERIFIED REPORT [facility] A Service of [facility] RADIOLOGY TEXT RESULTS PATIENT: QUETA GIL LOCATION: C5B 555-01 : 45 UNIT #: [id number] AGE: [address]: Tk High MD SEX: F ORDER DR: Jake Schrader M.D. at 12/19/2016 3:39 PM JEAN-PAUL/geoffrey TD: 12/18/2016 09:22 JOB #: [id number] MEDICAL IMAGING REPORT COPY
[~2016-12-17 16:53] MED LIST: ACETAMINOPHEN PO; AGGRENOX PO; AGGRENOX1 CAP PO; ALEVE; ANTI-DIARRHEAL2 M1 PO; ATIVAN2 MG PO; BACITRACIN28.4 G1 TP; BACLOFEN10 MG PO; BENADRYL PO; CELEXA20 MG PO; CENTURY CARDIO1 EACH PO; COMBIVENT MININEB IH; COMBIVENT U/D3 M1 NEB; CYMBALTA; DAILY VALUE1 EACH PO; DARVOCET-N 1001 TA1 PO; DDAVP0.2 M1 PO; DDAVP0.2 MG PO; DEMADEX10 MG PO; DEPAKOTE PO; DESYREL100 MG PO; DETROL PO; DICYCLOMINE HCL20 MG PO; DIVALPROEX SOD500 M1 PO; DULCOLAX10 MG/SUPP RC; ESTRACE PO; FAST RELIEF LAX10 MG RC; FEVERALL650 MG/SUP PR; FLEET ENEMA133 M1 PR; FLEXERIL PO; FLEXERIL10 M1 PO; FLORASTOR250 M1 PO; FOSAMAX70 MG PO; GABAPENTIN600 MG PO; GABAPENTIN800 MG PO; HYDROCODON-ACE1 EAC7 PO; HYDROCODON-ACE1 EAC9 PO; IRON325 ( 65 ) PO; IRON325 ( 652 PO; K-DUR20 ME1 PO; KEFLEX500 MG PO; KEPPRA1000 MG PO; KEPPRA500 MG PO; KEPPRA750 MG PO; KLOR-CON PO; LASIX PO; LEVAQUIN PO; LEVOTHROID100 MC1 PO; LISINOPRIL10 MG PO; LORTAB 5/500 TA1 TA1 PO; LOTRISONE CREAM45 GM TOP; LOVENOX40 MG/0.4 INJ; LYRICA25 MG; MELATONIN3 MG PO; METRONIDAZOLE PO; MILK OF MAGNESIA PO; MIRALAX17 G1 PO; MOBIC PO; NEURONTIN PO; NEURONTIN600 MG PO; NITROGYLCERIN SUBLINGUAL; NON-ASPIRIN 8650 MG PO; NORCO 5/325 TAB1 TAB PO; PANTOPRAZOLE SO40 MG PO; PAXIL PO; PAXIL10 MG PO; PHENERGAN PO; PLAQUENIL200 MG PO; PRILOSEC40 MG PO; PROCRIT SUBQ; PROTONIX PO; QUESTRAN LIGH4 G/PKT PO; RANEXA1000 MG PO; RESTASIS32 EA OP; SENNA S TABLET1 TAB PO; SENNA8.6 M2 PO; SEROQUEL25 MG PO; SINGULAIR PO; SKELAXIN PO; SYNTHROID PO; SYNTHROID88 MCG PO; TUMS500 M1 PO; TYLENOL325 M1 PO; VANCOCIN HCL250 M1 PO; VITAMIN D PO; VITAMIN D50000 UNIT PO; ZOLOFT100 MG PO; ZYRTEC10 M2 PO; ZYVOX600 MG IM/IV; [UNRECOGNIZED DRUG - OTHER] PO
[2016-12-17] MEDS ORDERED: LASIX PO (16:54)
[2016-12-17] MEDS ORDERED: GABAPENTIN600 MG PO (16:54)
[2016-12-17] MEDS ORDERED: HYDROCORTISONE30 G2 EXT (16:56)
[2016-12-17] MEDS ORDERED: PLAQUENIL200 MG PO (16:57)
[2016-12-17] MEDS ORDERED: NIZORAL120 ML TOP (16:58)
[2016-12-17] MEDS ORDERED: KEPPRA1000 MG PO (16:59)
[2016-12-17] MEDS ORDERED: SYNTHROID PO (17:00)
[2016-12-17 17:01] LABS: BASOPHIL% 0.2 % (0-2.5); EOSINOPHIL% 0.3 % (0.0-7.0); HEMATOCRIT 30.7 % (35.0-45.0); HEMOGLOBIN 10.3 gm/dL (12.0-16.0); LYMPHOCYTE# 1.5 X10e3 (1.0-3.5); LYMPHOCYTE% 27.3 % (17.0-45.0); MEAN CELL VOLUME 99.2 FL (83-96); MEAN CORPUSCULAR HEMOGLOBIN 33.1 PG (28-34); MEAN CORPUSCULAR HGB CONC 33.4 g/dL (30-36); MEAN PLATELET VOLUME 8.2 FL (6.5-11.5); MONOCYTE# 0.8 X10e3 (0-1.0); MONOCYTE% 14.4 % (3.0-12.0); NEUTROPHIL# 3.2 X10e3 (1.5-7.1); NEUTROPHIL% 57.8 % (40-75); PLATELET COUNT 128 X10e3 (140-420); RED CELL DISTRIBUTION WIDTH 13.8 % (11.0-15.5); WHITE BLOOD COUNT 5.5 X10e3 (4.0-10.5)
[2016-12-17] MEDS ORDERED: NITROSTAT0.4 MG SL (17:22)
[2016-12-17 17:37] LABS: ALBUMIN SERUM 3.2 g/dL (3.5-5.0); BILIRUBIN, DIRECT 0.2 mg/dL (0.0-0.2); BILIRUBIN,INDIRECT 0.4 mg/dL (0.0-0.9); BILIRUBIN,TOTAL 0.6 mg/dL (0.2-2.0); CALCIUM SERUM 8.2 mg/dL (8.4-10.2); GLOM FILT RATE Estimated 58.1 mL/min (>60); POTASSIUM 3.9 mmol/L (3.5-5.1); PROTEIN TOTAL SERUM 5.9 g/dL (6.0-8.3)
[2016-12-17 17:47] LABS: DIFF IND NO
[2016-12-17] MEDS ORDERED: VIT B-12 PO (17:50)
[2016-12-17] MEDS ORDERED: ONDANSETRON HCL4 M1 PO (17:52)
[2016-12-17] MEDS ORDERED: LIDODERM30 EA TOP (17:52)
[2016-12-17] MEDS ORDERED: PROTONIX PO (17:53)
[2016-12-17] MEDS ORDERED: KCL PO (17:54)
[2016-12-17] MEDS ORDERED: ZOLOFT50 MG PO (17:55)
[2016-12-17 17:56] LABS: POC - CKMB <1.0 ng/mL (0.0-7.9); POC - TROPONIN <0.05 ng/mL (<=0.05)
[2016-12-17 18:59] LABS: URINE SOURCE CLEAN CATCH
[2016-12-17 19:09] LABS: URINE APPEARANCE TURBID; URINE BILIRUBIN NEG (NEG); URINE BLOOD 3+ (NEG); URINE COLOR DK YELLOW; URINE GLUCOSE NEG (NEG); URINE KETONE NEG (NEG); URINE LEUKOCYTE ESTERASE 3+ (NEG); URINE NITRATE POS (NEG); URINE PH 5.5 (5-8); URINE PROTEIN 2+ (NEG); URINE SPECIFIC GRAVITY 1.025 (1.003-1.035)
[2016-12-17 19:12] LABS: CULTURE INDICATED? YES; U HYALINE CASTS AUWI 0-2 /[LPF]; URBCS1 AUWI 50-100 /[HPF] (0-2); URINE BACTERIA AUWI 4+ (NEGATIVE); URINE SQUAMOUS EPITHELIAL CELL NONE SEEN /[HPF]; UWBCS1 AUWI INNUM (0-5)
[2016-12-18 10:23] LABS: BASOPHIL% 0.2 % (0-2.5); EOSINOPHIL% 0.4 % (0.0-7.0); HEMATOCRIT 28.3 % (35.0-45.0); HEMOGLOBIN 9.4 gm/dL (12.0-16.0); LYMPHOCYTE# 1.4 X10e3 (1.0-3.5); MEAN CELL VOLUME 100.3 FL (83-96); MEAN CORPUSCULAR HEMOGLOBIN 33.2 PG (28-34); MEAN CORPUSCULAR HGB CONC 33.1 g/dL (30-36); MEAN PLATELET VOLUME 8.4 FL (6.5-11.5); MONOCYTE# 0.5 X10e3 (0-1.0); NEUTROPHIL# 2.4 X10e3 (1.5-7.1); NEUTROPHIL% 56.4 % (40-75); PLATELET COUNT 101 X10e3 (140-420); RED BLOOD COUNT 2.82 X10e (3.90-5.30); RED CELL DISTRIBUTION WIDTH 14.4 % (11.0-15.5); WHITE BLOOD COUNT 4.3 X10e3 (4.0-10.5)
[2016-12-18 10:26] LABS: DIFF IND NO
[2016-12-18 10:51] LABS: BLOOD UREA NITROGEN 16 mg/dL (9-23); CALCIUM SERUM 7.7 mg/dL (8.4-10.2); CARBON DIOXIDE 18 mmol/L (22-31); CHLORIDE 109 mmol/L (100-111); CREATININE SERUM 0.8 mg/dL (0.6-1.4); GLOM FILT RATE Estimated ABOVE60 mL/min (>60); GLUCOSE FASTING 84 mg/dL (70-110); POTASSIUM 3.9 mmol/L (3.5-5.1); SODIUM 137 mmol/L (135-145)
[2016-12-19 05:41] LABS: HEMOGLOBIN 8.6 gm/dL (12.0-16.0); MEAN CELL VOLUME 100.6 FL (83-96); MEAN CORPUSCULAR HEMOGLOBIN 33.2 PG (28-34); MEAN CORPUSCULAR HGB CONC 33.1 g/dL (30-36); MEAN PLATELET VOLUME 8.2 FL (6.5-11.5); RED BLOOD COUNT 2.59 X10e (3.90-5.30); RED CELL DISTRIBUTION WIDTH 13.9 % (11.0-15.5); WHITE BLOOD COUNT 3.5 X10e3 (4.0-10.5)
[2016-12-19 06:28] LABS: BLOOD UREA NITROGEN 9 mg/dL (9-23); CALCIUM SERUM 7.6 mg/dL (8.4-10.2); CARBON DIOXIDE 22 mmol/L (22-31); CHLORIDE 114 mmol/L (100-111); CREATININE SERUM 0.6 mg/dL (0.6-1.4); GLOM FILT RATE Estimated ABOVE60 mL/min (>60); GLUCOSE FASTING 78 mg/dL (70-110); POTASSIUM 3.9 mmol/L (3.5-5.1); SODIUM 142 mmol/L (135-145)
[2016-12-20 06:16] LABS: HEMATOCRIT 22.9 % (35.0-45.0); HEMOGLOBIN 7.7 gm/dL (12.0-16.0); MEAN CELL VOLUME 99.3 FL (83-96); MEAN CORPUSCULAR HEMOGLOBIN 33.3 PG (28-34); MEAN CORPUSCULAR HGB CONC 33.6 g/dL (30-36); MEAN PLATELET VOLUME 8.2 FL (6.5-11.5); RED BLOOD COUNT 2.31 X10e (3.90-5.30); RED CELL DISTRIBUTION WIDTH 13.4 % (11.0-15.5); WHITE BLOOD COUNT 3.9 X10e3 (4.0-10.5)
[2016-12-20 06:47] LABS: CALCIUM SERUM 7.5 mg/dL (8.4-10.2); CARBON DIOXIDE 23 mmol/L (22-31); CHLORIDE 107 mmol/L (100-111); CREATININE SERUM 0.4 mg/dL (0.6-1.4); GLOM FILT RATE Estimated ABOVE60 mL/min (>60); GLUCOSE FASTING 77 mg/dL (70-110); POTASSIUM 3.5 mmol/L (3.5-5.1); SODIUM 133 mmol/L (135-145)
[2016-12-20 06:48] LABS: BLOOD UREA NITROGEN <5 mg/dL (9-23)
[2016-12-20 11:52] LABS: CHOLESTEROL 102 mg/dL (0-200); HDL CHOLESTEROL 41 mg/dL (35-95); LDL CHOLESTEROL 47 mg/dL (-130); LDL/HDL RATIO 1 RATIO (0-4); TRIGLYCERIDES 71 mg/dL (10-160)
[2016-12-20 12:10] LABS: %MB 5.1 % (0.0-4.0); MB 4.5 ng/ml
[2016-12-21 06:20] LABS: BASOPHIL% 0.3 % (0-2.5); HEMATOCRIT 31.8 % (35.0-45.0); LYMPHOCYTE# 0.8 X10e3 (1.0-3.5); LYMPHOCYTE% 17.7 % (17.0-45.0); MEAN CORPUSCULAR HEMOGLOBIN 32.2 PG (28-34); MONOCYTE# 0.4 X10e3 (0-1.0); MONOCYTE% 8.9 % (3.0-12.0); NEUTROPHIL# 3.4 X10e3 (1.5-7.1); NEUTROPHIL% 73.1 % (40-75); PLATELET COUNT 123 X10e3 (140-420); RED BLOOD COUNT 3.35 X10e (3.90-5.30); RED CELL DISTRIBUTION WIDTH 14.8 % (11.0-15.5); WHITE BLOOD COUNT 4.7 X10e3 (4.0-10.5)
[2016-12-21 06:24] LABS: HEMOGLOBIN 10.8 gm/dL (12.0-16.0); MEAN CELL VOLUME 94.7 FL (83-96)
[2016-12-21 06:25] LABS: DIFF IND NO
[2016-12-21 07:08] LABS: BLOOD UREA NITROGEN 10 mg/dL (9-23); BUN/CREATININE RATIO 16.66; CALCIUM SERUM 8.4 mg/dL (8.4-10.2); CARBON DIOXIDE 26 mmol/L (22-31); CHLORIDE 102 mmol/L (100-111); CREATININE SERUM 0.6 mg/dL (0.6-1.4); GLOM FILT RATE Estimated ABOVE60 mL/min (>60); GLUCOSE FASTING 103 mg/dL (70-110); POTASSIUM 3.8 mmol/L (3.5-5.1); SODIUM 140 mmol/L (135-145)
[2016-12-21 07:13] LABS: ANGIO %MB 9.1 % (0.0-4.0); ANGIO MB 10.4 ng/ml
[2016-12-22 06:08] LABS: HEMATOCRIT 30.5 % (35.0-45.0); HEMOGLOBIN 10.3 gm/dL (12.0-16.0); MEAN CELL VOLUME 94.6 FL (83-96); MEAN CORPUSCULAR HEMOGLOBIN 31.9 PG (28-34); MEAN CORPUSCULAR HGB CONC 33.7 g/dL (30-36); MEAN PLATELET VOLUME 7.2 FL (6.5-11.5); RED BLOOD COUNT 3.22 X10e (3.90-5.30); RED CELL DISTRIBUTION WIDTH 14.8 % (11.0-15.5); WHITE BLOOD COUNT 4.7 X10e3 (4.0-10.5)
[2016-12-22 06:58] LABS: BLOOD UREA NITROGEN 12 mg/dL (9-23); CALCIUM SERUM 8.5 mg/dL (8.4-10.2); CARBON DIOXIDE 29 mmol/L (22-31); CHLORIDE 102 mmol/L (100-111); CREATININE SERUM 0.6 mg/dL (0.6-1.4); GLOM FILT RATE Estimated ABOVE60 mL/min (>60); GLUCOSE FASTING 80 mg/dL (70-110); POTASSIUM 3.4 mmol/L (3.5-5.1); SODIUM 138 mmol/L (135-145)
[2016-12-23 06:40] LABS: BASOPHIL% 0.3 % (0-2.5); EOSINOPHIL% 0.8 % (0.0-7.0); HEMATOCRIT 31.6 % (35.0-45.0); HEMOGLOBIN 10.6 gm/dL (12.0-16.0); LYMPHOCYTE# 2.1 X10e3 (1.0-3.5); LYMPHOCYTE% 39.8 % (17.0-45.0); MEAN CELL VOLUME 96.3 FL (83-96); MEAN CORPUSCULAR HEMOGLOBIN 32.3 PG (28-34); MEAN CORPUSCULAR HGB CONC 33.6 g/dL (30-36); MEAN PLATELET VOLUME 7.4 FL (6.5-11.5); MONOCYTE# 0.5 X10e3 (0-1.0); MONOCYTE% 9.3 % (3.0-12.0); NEUTROPHIL# 2.7 X10e3 (1.5-7.1); NEUTROPHIL% 49.8 % (40-75); PLATELET COUNT 133 X10e3 (140-420); RED BLOOD COUNT 3.28 X10e (3.90-5.30); RED CELL DISTRIBUTION WIDTH 14.4 % (11.0-15.5); WHITE BLOOD COUNT 5.4 X10e3 (4.0-10.5)
[2016-12-23 06:45] LABS: DIFF IND NO
[2016-12-23 07:18] LABS: BLOOD UREA NITROGEN 11 mg/dL (9-23); BUN/CREATININE RATIO 15.71; CALCIUM SERUM 8.4 mg/dL (8.4-10.2); CARBON DIOXIDE 28 mmol/L (22-31); CHLORIDE 99 mmol/L (100-111); CREATININE SERUM 0.7 mg/dL (0.6-1.4); GLOM FILT RATE Estimated ABOVE60 mL/min (>60); GLUCOSE FASTING 79 mg/dL (70-110); POTASSIUM 3.3 mmol/L (3.5-5.1); SODIUM 137 mmol/L (135-145)
[2016-12-24 06:24] LABS: HEMATOCRIT 32.5 % (35.0-45.0); HEMOGLOBIN 10.8 gm/dL (12.0-16.0); MEAN CORPUSCULAR HEMOGLOBIN 32.4 PG (28-34); MEAN CORPUSCULAR HGB CONC 33.4 g/dL (30-36); MEAN PLATELET VOLUME 7.1 FL (6.5-11.5); RED BLOOD COUNT 3.35 X10e (3.90-5.30); RED CELL DISTRIBUTION WIDTH 14.3 % (11.0-15.5); WHITE BLOOD COUNT 5.5 X10e3 (4.0-10.5)
[2016-12-24 07:02] LABS: BLOOD UREA NITROGEN 7 mg/dL (9-23); CALCIUM SERUM 8.8 mg/dL (8.4-10.2); CARBON DIOXIDE 26 mmol/L (22-31); CHLORIDE 101 mmol/L (100-111); CREATININE SERUM 0.7 mg/dL (0.6-1.4); GLOM FILT RATE Estimated ABOVE60 mL/min (>60); GLUCOSE FASTING 78 mg/dL (70-110); POTASSIUM 4.3 mmol/L (3.5-5.1); SODIUM 138 mmol/L (135-145)
[2016-12-25 06:47] LABS: HEMATOCRIT 30.6 % (35.0-45.0); HEMOGLOBIN 10.2 gm/dL (12.0-16.0); MEAN CELL VOLUME 95.8 FL (83-96); MEAN CORPUSCULAR HGB CONC 33.4 g/dL (30-36); MEAN PLATELET VOLUME 7.3 FL (6.5-11.5); RED BLOOD COUNT 3.19 X10e (3.90-5.30); RED CELL DISTRIBUTION WIDTH 14.2 % (11.0-15.5); WHITE BLOOD COUNT 4.8 X10e3 (4.0-10.5)
[2016-12-25 07:49] LABS: BLOOD UREA NITROGEN 8 mg/dL (9-23); CALCIUM SERUM 8.1 mg/dL (8.4-10.2); CARBON DIOXIDE 29 mmol/L (22-31); CHLORIDE 100 mmol/L (100-111); CREATININE SERUM 0.4 mg/dL (0.6-1.4); GLOM FILT RATE Estimated ABOVE60 mL/min (>60); GLUCOSE FASTING 85 mg/dL (70-110); MAGNESIUM 1.6 mg/dL (1.6-3.0); POTASSIUM 4.5 mmol/L (3.5-5.1); SODIUM 133 mmol/L (135-145)
== END 2016-12-26 17:08 | DRG 871 ==
LOC: CED 16:53 → CEDOF 21:45 → C5B 23:07
PROVIDERS: Emergency Medicine; Internal Medicine; Internal Medicine Cardiovascular Disease; Nurse Practitioner
PROC: 30233N1 Transfusion of Nonautologous Red Blood Cells into Peripheral Vein, Percutaneous Approach (ICD-10-PCS; principal; 2016-12-17)
PROC: 02HV33Z Insertion of Infusion Device into Superior Vena Cava, Percutaneous Approach (ICD-10-PCS; 2016-12-19)
PROC: B518YZA Fluoroscopy of Superior Vena Cava using Other Contrast, Guidance (ICD-10-PCS; 2016-12-19)
PROC: B548ZZA Ultrasonography of Superior Vena Cava, Guidance (ICD-10-PCS; 2016-12-19)
PROC: 4A023N7 Measurement of Cardiac Sampling and Pressure, Left Heart, Percutaneous Approach (ICD-10-PCS; 2016-12-20)
PROC: B211YZZ Fluoroscopy of Multiple Coronary Arteries using Other Contrast (ICD-10-PCS; 2016-12-20)
PROC: B215YZZ Fluoroscopy of Left Heart using Other Contrast (ICD-10-PCS; 2016-12-20)
PROC: B246YZZ Ultrasonography of Right and Left Heart using Other Contrast (ICD-10-PCS; 2016-12-23)
DX: A41.51 Sepsis due to Escherichia coli [E. coli] (principal); I21.4 Non-ST elevation (NSTEMI) myocardial infarction; N39.0 Urinary tract infection, site not specified; M32.9 Systemic lupus erythematosus, unspecified; K21.9 Gastro-esophageal reflux disease without esophagitis; D46.9 Myelodysplastic syndrome, unspecified; S82.51XA Displaced fracture of medial malleolus of right tibia, initial encounter for closed fracture; S92.911A Unspecified fracture of right toe(s), initial encounter for closed fracture; W18.30XA Fall on same level, unspecified, initial encounter; Z91.81 History of falling; Y93.9 Activity, unspecified; Y92.019 Unspecified place in single-family (private) house as the place of occurrence of the external cause; Z82.49 Family history of ischemic heart disease and other diseases of the circulatory system; G40.909 Epilepsy, unspecified, not intractable, without status epilepticus; E03.9 Hypothyroidism, unspecified; F32.9 Major depressive disorder, single episode, unspecified; G47.33 Obstructive sleep apnea (adult) (pediatric); Z90.710 Acquired absence of both cervix and uterus; Z90.49 Acquired absence of other specified parts of digestive tract; Z88.5 Allergy status to narcotic agent; Z88.2 Allergy status to sulfonamides; Z91.040 Latex allergy status; Z91.041 Radiographic dye allergy status; I25.10 Atherosclerotic heart disease of native coronary artery without angina pectoris; Z86.73 Personal history of transient ischemic attack (TIA), and cerebral infarction without residual deficits; M06.9 Rheumatoid arthritis, unspecified; E87.6 Hypokalemia; Z95.1 Presence of aortocoronary bypass graft
CPT/HCPCS: 29515; 36415; 51701; 71010; 71020; 72100; 73030; 73610; 73630; 76770; 76937; 77001; 80048; 80061; 80076; 80202; 81003; 82550; 82553; 82947; 83605; 83735; 84484; 85025; 85027; 85347; 86850; 86900; 86901; 86923; 87040; 87086; 87088; 87186; 93005; 93306; 93970; 93971; 94760; 96365; 96375; 97110; 97163; 97167; 97530; 97535; 99285; C1725; C1751; C1769; C1887; C1894; G8978-GP; G8979-GP; G8987-GO; G8988-GO; J0461; J0696; J1200; J1644; J1650; J1940; J2250; J2270; J2370; J2405; J2930; J2997; J3010; J3260; J3370; P9016

== ENCOUNTER → 2017-03-06 | Outpatient (CLI) | payer OTHER ==
[~2017-03-06] MED LIST changes: +HYDROCORTISONE30 G2 EXT; +KCL PO; +LIDODERM30 EA TOP; +NITROSTAT0.4 MG SL; +NIZORAL120 ML TOP; +ONDANSETRON HCL4 M1 PO; +VIT B-12 PO; +ZOLOFT50 MG PO
--- NOTE | ~2017-03-06 | MY11 ---
[facility] A Service of [facility] & [facility] RADIOLOGY TEXT RESULTS PATIENT: QUETA GIL LOCATION: [facility] : [birth year] UNIT #: [id number] AGE: [address]: Tone Shelton MD SEX: F ORDER DR: [id number] [facility] [address]. [place], [place] [address] [id number] O MR#: [id number] Acc #: [id number] NAME: QUETA GIL : 1945 SEX: F STUDY DATE/TIME: 03/06/2017 10:45 UNIT: [facility] ROOM: STUDY DESCRIPTION: MY Mammogram Screening Dig [place] Attending Physician: Tone Shelton M.D. Referring Physician: Tone Shelton M.D. Ordering Physician: Tone Shelton M.D. Primary Care Physician: Tone Shelton M.D. MEDICAL IMAGING REPORT This report is preliminary unless electronic signature is present EXAM Bilateral digital screening mammogram with CAD DATE 03/06/2017 HISTORY History of breast augmentation in 1982. No documented personal or family history of breast cancer or current complaints. COMPARISON Bilateral screening mammogram 03/03/2015, 12/15/2013, 01/12/2013. FINDINGS Of special note, the patient utilizes a wheelchair and has a history of right shoulder fracture, therefore, limiting patient positioning. As a result, the patients previously documented breast implants cannot be visualized or included in the imaging field of view. Scattered fibroglandular densities are present bilaterally, most prominent in the subareolar region of the right breast, similar to previous examination. Benign-appearing round and vascular-type calcifications are present bilaterally. No suspicious clustered microcalcifications are seen. No evidence of nonsurgical architectural distortion. IMPRESSION 1. Routine bilateral screening mammogram recommended in 1 year. 2. Examination is limited due to suboptimal positioning giving the patient's condition. The patient's known breast implants are not well evaluated and are excluded from the imaging field of view. Patient's over the age of 40 are entered into a reminder system with target due date for the next mammogram. [facility] A Service of [facility] & [facility] RADIOLOGY TEXT RESULTS PATIENT: QUETA GIL LOCATION: [facility] : 45 UNIT #: [id number] AGE: [address]: Tone Shelton MD SEX: F ORDER DR: KEYURADS: 2 Benign findings Dictated by... Kala Orellana M.D. THIS IS AN ELECTRONICALLY VERIFIED REPORT Kala Orellana M.D. at 03/07/2017 4:35 PM HEAVEN/anson TD: 03/07/2017 15:58 JOB #: [id number] MEDICAL IMAGING REPORT Page 1 of 1 COPY
== END | disposition home or self-care (01) ==
LOC: CWCC 10:22
DX: Z12.31 Encounter for screening mammogram for malignant neoplasm of breast (principal); Z98.82 Breast implant status
CPT/HCPCS: G0202